=== PATIENT | male | born 1965 | race American Indian/Alaskan Native ===

== ENCOUNTER 2019-04-29 19:02 | Emergency (ER) | payer MEDICAID ==
--- NOTE | 2019-04-29 20:10 | Emergency Department Report ---
Blank Doc - Documentation Documentation: This is a 53-year-old male that presents with chest pain and SOB. Stated just had heart value replacement. Stated believes is his asthma exacerbation. This initial assessment/diagnostic orders/clinical plan/treatment(s) is/are subject to change based on patient's health status, clinical progression and re- assessment by fellow clinical providers in the ED. Further treatment and workup at subsequent clinical providers discretion. Patient/guardians urged not to elope from the ED as their condition may be serious if not clinically assessed and managed. Initial orders include: 1- Patient sent to MAIN for further evaluation and treatment 2- labs 3- EKG 4- CXR
[2019-04-29] MEDS ORDERED: ATROVENT IH ONE (20:28)
[2019-04-29] MEDS ORDERED: XOPENEX IH ONE (20:28)
[2019-04-29] MEDS ORDERED: DELTASONE PO ONE (20:29)
--- NOTE | 2019-04-29 20:35 | Emergency Department Report ---
HPI - General Chief Complaint: Chest Pain Time Seen by Provider: 04/29/19 20:08 - HPI HPI: Room 23 The patient is a 53-year-old male presenting with chief complaint of "I think my asthma is flaring up." The patient states she is constant chest tightness and shortness of breath consistent with his asthma for the past 3 days. Patient admits to an occasional cough for one to 2 days has been nonproductive. Patient denies history of fever but admits to an episode of nausea and vomiting 2 days ago. The patient states he had an LVAD placed at [facility] 3 weeks ago Location: [See above] Duration: [See above] Quality: [See above] Severity: [See above] Modifying factors: [see above] Context: [see above] Mode of transportation: [not driving] ED Past Medical Hx - Past Medical History Previous Medical History?: Yes Hx Congestive Heart Failure: Yes Hx Asthma: Yes Additional medical history: sleep apnea, gout, staph infection, L Heart Valve 2013, LVAD summer 2018, being treating for current Staph infection and has a PICC line to right chest wall - Surgical History Past Surgical History?: Yes Hx Open Heart Surgery: Yes (triple) Hx Pacemaker: Yes Additional Surgical History: colostomy reversal after colon cancer, 6" colon removed from colon cancer, L Heart Valve replacement 2013, Remed and replaced current Staph infection, PICC line to right chest wall, LVAD summer 2018 - Social History Smoking Status: Never Smoker Substance Use Type: Alcohol (occasional) - Medications Home Medications: Home Medications Medication Instructions Recorded Confirmed Last Taken Type HYDROcodone/APAP 7.5-325 [[place] 1 each PO Q6HR PRN #20 tablet 08/01/14 Unknown Rx 7.5/325 mg] Indomethacin Sr (Nf) [Indocin Sr] 75 mg PO Q12HR #30 capsule.er 08/01/14 Unknown Rx Fluticasone Propionate [Flovent 1 puff IH BID #1 aer.w.adap 04/29/19 Unknown Rx Hfa] ED Review of Systems ROS: Stated complaint: ASTHMA ATTACK Other details as noted in HPI Constitutional: denies: fever Eyes: denies: eye pain ENT: denies: throat pain Respiratory: cough, shortness of breath, wheezing Cardiovascular: other ("chest tightness") Endocrine: no symptoms reported Gastrointestinal: denies: abdominal pain Genitourinary: denies: dysuria Musculoskeletal: denies: back pain Neurological: denies: headache Physical Exam - Physical Exam Vital Signs: Vital Signs 04/29/19 19:09 Temperature 98.3 F Pulse Rate 102 H Respiratory 18 Rate Blood Pressure 140/122 O2 Sat by Pulse 99 Oximetry Physical Exam: GENERAL: The patient is well-developed well-nourished male lying on stretcher using cellphone not appearing to be in acute distress. [] HEENT: Normocephalic. Atraumatic. Extraocular motions are intact. Patient has moist mucous membranes. NECK: Supple. Trachea midline CHEST/LUNGS: Faint extremities bilateral bases. There is no respiratory dist ress noted. HEART/CARDIOVASCULAR: Regular. There is no tachycardia. There is no gallop rub or murmur. ABDOMEN: Abdomen is soft, nontender. Patient has normal bowel sounds. There is no abdominal distention. SKIN: There is no rash. There is trace bilateral lower extremity pitting edema. There is no diaphoresis. NEURO: The patient is awake, alert, and oriented. The patient is cooperative. The patient has normal speech MUSCULOSKELETAL: There is no evidence of acute injury. ED Course Vital Signs 04/29/19 19:09 Temperature 98.3 F Pulse Rate 102 H Respiratory 18 Rate Blood Pressure 140/122 O2 Sat by Pulse 99 Oximetry - Reevaluation(s) Reevaluation #1: 04/29/19 22:31 Patient states he feels much better - Consultations Consultation #1: 04/29/19 21:32 Patient's cardiothoracic surgeon paged 04/29/19 22:31 Case discussed with cardiothoracic surgeon Dr. Fofana- hernesto to treat patient for his asthma. Would not recommend oral steroids but inhaled steroids are okay. ED Medical Decision Making - Lab Data Result diagrams: 04/29/19 20:34 04/29/19 20:34 Laboratory Tests 04/29/19 04/29/19 04/29/19 20:34 20:34 20:34 WBC 5.0 RBC 3.76 Hgb 7.8 L Hct 24.1 L MCV 64 L MCH 21 L MCHC 32 RDW 21.6 H Plt Count 265 Lymph % (Auto) 14.8 [place] % (Auto) 12.4 H Eos % (Auto) 14.5 H Baso % (Auto) 0.7 Lymph # 0.7 L [place] # 0.6 Eos # 0.7 H Baso # 0.0 Seg Neutrophils % 57.6 Seg Neutrophils # 2.9 PT 23.1 H INR 2.10 H APTT 25.7 Sodium 142 Potassium 3.6 Chloride 106.6 Carbon Dioxide 24 Anion Gap 15 BUN 14 Creatinine 1.0 Estimated GFR > 60 BUN/Creatinine Ratio 14 Glucose 96 Calcium 8.4 Troponin T < 0.010 NT-Pro-B Natriuret Pep 04/29/19 20:34 WBC RBC Hgb Hct MCV MCH MCHC RDW Plt Count Lymph % (Auto) [place] % (Auto) Eos % (Auto) Baso % (Auto) Lymph # [place] # Eos # Baso # Seg Neutrophils % Seg Neutrophils # PT INR APTT Sodium Potassium Chloride Carbon Dioxide Anion Gap BUN Creatinine Estimated GFR BUN/Creatinine Ratio Glucose Calcium Troponin T NT-Pro-B Natriuret Pep 3279 H - EKG Data -: EKG Interpreted by Me Rate: tachycardia (104 bpm) - EKG Data When compared to previous EKG there are: previous EKG unavailable Interpretation: other (ventricular paced rhythm) - Radiology Data Radiology results: report reviewed (chest x-ray), image reviewed (chest x-ray) interpreted by me: Chest w-exk-[id number] [facility] [address] [place] [address] XRay Report Signed Patient: OLIVIA FIERRO MR#: [id number] : 1965 Acct:[id number] Age/Sex: 53 / M ADM Date: 04/29/19 Loc: ED Attending Dr: Ordering Physician: LELIA CONNELL MD Date of Service: 04/29/19 Procedure(s): XR chest 1V ap Accession Number(s): [id number] cc: LELIA CONNELL MD Fluoro Time In Minutes: CHEST 1 VIEW 8:43 PM INDICATION / CLINICAL INFORMATION: Chest tightness and shortness of breath. COMPARISON: None available. FINDINGS: SUPPORT DEVICES: There is a left ventricular assist device. There is a dual chamber left subclavian ICD with the tips of the pacing leads overlying the right atrial appendage and right ventricular apex. There is a right jugular CVL with the tip overlying the distal SVC. HEART / MEDIASTINUM: Median sternotomy and moderately severe generalized enlargement of the cardiopericardial silhouette. Pulmonary vasculature is normal for technique. LUNGS / PLEURA: No significant pulmonary or pleural abnormality. No pneumothorax. ADDITIONAL FINDINGS: No significant additional findings. IMPRESSION: Moderately severe enlargement of the cardiopericardial silhouette. No acute pulmonary disease. Signer Name: Ryan Mcclellan MD Signed: 04/29/2019 8:59 PM Workstation Name: [id number] Transcribed By: RT Dictated By: Ryan Mcclellan MD Electronically Authenticated By: Ryan Mcclellan MD Signed Date/Time: 04/29/192058 DD/ 57 TD/TT: - Differential Diagnosis asthma exacerbation, ACS, CHF exacerbation Critical care attestation.: If time is entered above; I have spent that time in minutes in the direct care of this critically ill patient, excluding procedure time. ED Disposition Clinical Impression: Acute asthma exacerbation Disposition: DC-01 TO HOME OR SELFCARE Is pt being admited?: No Does the pt Need Aspirin: No Condition: Stable Instructions: Asthma (ED) Additional Instructions: Return to the emergency department immediately should you develop worsening symptoms, fever, inability to tolerate food or liquid or any other concerns. Prescriptions: Fluticasone Propionate [Flovent Hfa] 1 puff IH BID #1 aer.w.adap Referrals: PRIMARY CARE, [Referring] - 3-5 Days Time of Disposition: 22:34
[2019-04-29 20:44] LABS: Basophils % (Auto) 0.7 % (0.0-1.8); Eosinophils # (Auto) 0.7 K/mm3 (0.0-0.4); Eosinophils % (Auto) 14.5 % (0.0-4.3); Hematocrit 24.1 % (35.5-45.6); Hemoglobin 7.8 gm/dl (11.8-15.2); Lymphocytes # (Auto) 0.7 K/mm3 (1.2-5.4); Lymphocytes % (Auto) 14.8 % (13.4-35.0); Mean Corpuscular HGB Conc 32 % (32-34); Monocytes # (Auto) 0.6 K/mm3 (0.0-0.8); Monocytes % (Auto) 12.4 % (0.0-7.3); Platelet Count 265 K/mm3 (140-440); Red Blood Count 3.76 M/mm3 (3.65-5.03)
[2019-04-29 20:46] LABS: Mean Corpuscular Volume 64 fl (84-94); Red Cell Distribution Width 21.6 % (13.2-15.2)
[2019-04-29 20:54] LABS: INR 2.1 (0.87-1.13)
[2019-04-29 20:55] LABS: Partial Thromboplastin Time 25.7 Sec. (24.2-36.6)
--- NOTE | 2019-04-29 21:04 | XRay Report ---
CHEST 1 VIEW 8:43 PM INDICATION / CLINICAL INFORMATION: Chest tightness and shortness of breath. COMPARISON: None available. FINDINGS: SUPPORT DEVICES: There is a left ventricular assist device. There is a dual chamber left subclavian I CD with the tips of the pacing leads overlying the right atrial appendage and right ventricular apex. There is a right jugular CVL with the tip overlying the distal SVC. HEART / MEDIASTINUM: Median sternotomy and moderately severe generalized enlargement of the cardioper icardial silhouette. Pulmonary vasculature is normal for technique. LUNGS / PLEURA: No significant pulmonary or pleural abnormality. No pneumothorax. ADDITIONAL FINDINGS: No significant additional findings. IMPRESSION: Moderately severe enlargement of the cardiopericardial silhouette. No acute pulmonary dis ease. Signer Name: Ryan Mcclellan MD Signed: 04/29/2019 8:59 PM Workstation Name: [id number]
[2019-04-29 21:06] LABS: BUN/Creatinine Ratio 14; Blood Urea Nitrogen 14 mg/dL (9-20); Calcium 8.4 mg/dL (8.4-10.2); Hemolysis Index 3
[2019-04-29 23:04] VITALS: BP 114/65
== END 2019-04-29 23:04 | disposition home or self-care (01) ==
LOC: ED 19:02
DX: J45.901 Unspecified asthma with (acute) exacerbation (principal); I50.9 Heart failure, unspecified; G47.30 Sleep apnea, unspecified; M10.9 Gout, unspecified; Z98.890 Other specified postprocedural states; Z95.0 Presence of cardiac pacemaker; Z79.899 Other long term (current) drug therapy; Z91.041 Radiographic dye allergy status; Z91.013 Allergy to seafood; Z88.8 Allergy status to other drugs, medicaments and biological substances
CPT/HCPCS: 36415; 71045; 80048; 83880; 84484; 85025; 85610; 85730; 93005; 93010; 94640; 94644; J7512